=== PATIENT | male | born 1955 | race Caucasian/White ===

== ENCOUNTER → 2016-08-06 | Outpatient (CLI) | payer OTHER ==
--- NOTE | 2016-08-07 09:52 | CR ---
EXAM DATE: 08/06/16 PATIENT'S AGE: 60 Patient: RACHELLE DOLL Facility: [place], [place] Site Site : 1955 Study: XRay Knee Left [id number]/24/2017 11:23:14 AM Ordering Physician: LYNN MENDEZ Final Report: History : Osteoarthritis of knee. Findings: Standing AP and lateral radiographs of the left knee were obtained with a sunrise view. There is mild decrease in the medial joint space. No spurring is identified. The patellofemoral joint space appears preserved. No joint effusion , fracture or dislocation. Impression: Mild decrease in the medial joint space of the left knee. Dictated by Shannon Villegas MD @ Aug 06 2016 11:47PM (Electronic Signature) Report Signed by Proxy and Original Signed Document filed in the Medical Record. GLENDA
== END ==
LOC: MW.CHFP 09:41
PROVIDERS: ATTEND Physician Assistant
DX: M17.12 Unilateral primary osteoarthritis, left knee (principal)
CPT/HCPCS: 73562-26-LT; 73562-LT

== ENCOUNTER 2017-04-29 12:16 | Emergency (ER) | payer OTHER ==
--- NOTE | 2017-04-29 12:38 | EDM.PDOC ---
ED HPI GENERAL MEDICAL PROBLEM - General Chief Complaint: Genitourinary Problem Stated Complaint: UNABLE TO URINATE Time Seen by Provider: 04/29/17 12:38 Source of Information: Reports: Patient - History of Present Illness INITIAL COMMENTS - FREE TEXT/NARRATIVE: HISTORY AND PHYSICAL: History of present illness: [Patient presents with lateral pain urinary hesitancy and frequency much dysuria on urination no fever nausea vomiting chills sweats No flank pain pain is minimal to tolerable until urination ] Review of systems: As per history of present illness and below otherwise all systems reviewed and negative. Past medical history: As per history of present illness and as reviewed below otherwise noncontributory. Surgical history: As per history of present illness and as reviewed below otherwise noncontributory. Social history: No reported history of drug or alcohol abuse. Family history: As per history of present illness and as reviewed below otherwise noncontributory. Physical exam: HEENT: Atraumatic, normocephalic, pupils reactive, negative for conjunctival pallor or scleral icterus, mucous membranes moist, throat clear, neck supple, nontender, trachea midline. Lungs: Clear to auscultation, breath sounds equal bilaterally, chest nontender. Heart: S1S2, regular, negative for clicks, rubs, or JVD. Abdomen: Soft, nondistended, nontender. Negative for masses or hepatosplenomegaly. Negative for costovertebral tenderness. Pelvis: Stable nontender. Genitourinary: Deferred. Rectal: Deferred. Extremities: Atraumatic, negative for cords or calf pain. Neurovascular unremarkable. Neuro: Awake, alert, oriented. Cranial nerves II through XII unremarkable. Cerebellum unremarkable. Motor and sensory unremarkable throughout. Exam nonfocal. Diagnostics: []CBC CMP UA with culture Bladder scan Therapeutics: 250 mg Rocephin IM Azithromycin 1 g by mouth Bactrim double strength by mouth twice a day #20 no refill ] Impression: UTI Definitive disposition and diagnosis as appropriate pending reevaluation and review of above. Back Pain Score (Numeric/FACES): 5 - Related Data Allergies Allergy/AdvReac Type Severity Reaction Status Date / Time No Known Allergies Allergy Verified 06/03/14 11:08 Home Meds: Home Meds Albuterol [Proair HFA] 1 inhaler INH ASDIRECTED 11/23/13 [History] Fluticasone Propionate [Flovent] 1 inhalation INH ASDIRECTED 11/23/13 [History] Hydrocodone/Acetaminophen [Lorcet 5-325 mg Tablet] 2 tab PO ASDIRECTED PRN 04/29 [History] Tamsulosin [Tamsulosin 24 Hr] 0.4 mg PO BID 04/29/17 [History] Social & Family History - Tobacco Use Smoking Status *Q: Never Smoker Second Hand Smoke Exposure: No - Alcohol Use Days Per Week of Alcohol Use: 0 - Recreational Drug Use Recreational Drug Use: No ED ROS GENERAL - Review of Systems Review Of Systems: ROS reveals no pertinent complaints other than HPI. ED EXAM, GENERAL - Physical Exam Exam: See Below Course - Vital Signs Last Recorded V/S: Last Vital Signs Temp 99.9 F 04/29/17 12:39 Pulse 84 04/29/17 12:39 Resp 18 04/29/17 12:39 BP 133/89 04/29/17 12:39 Pulse Ox - Orders/Labs/Meds Orders: Active Orders 24 hr Category Date Time Status Ricardo Catheter Insertion [Insert Urinary Catheter] [OM. Care 04/29/17 12:45 Ordered PC] Q24H Urinary Catheter Assessment [RC] ASDIRECTED Care 04/29/17 12:37 Active CBC WITH AUTO DIFF [HEME] Stat Lab 04/29/17 12:36 Ordered CHLAMYDIA AND GONORRHEA BY TMA Stat Lab 04/29/17 14:08 Ordered COMPREHENSIVE METABOLIC PN,CMP [CHEM] Stat Lab 04/29/17 12:36 Ordered CULTURE URINE [RM] Stat Lab 04/29/17 12:45 Received Azithromycin [Zithromax] Med 04/29/17 14:09 Stat 1,000 mg PO NOW STA cefTRIAXone [Rocephin] 250 mg Med 04/29/17 14:09 Active Lidocaine 1% [Xylocaine-MPF 1%] 1 ml IM ONETIME Labs: Laboratory Tests 04/29/17 Range/Units 12:45 Urine Color YELLOW Urine Appearance CLEAR Urine pH 7.0 (5.0-8.0) Ur Specific [place] 1.015 (1.001-1.035) Urine Protein NEGATIVE (NEGATIVE) mg/dL Urine Glucose (UA) NEGATIVE (NEGATIVE) mg/dL Urine Ketones NEGATIVE (NEGATIVE) mg/dL Urine Occult Blood NEGATIVE (NEGATIVE) Urine Nitrite NEGATIVE (NEGATIVE) Urine Bilirubin NEGATIVE (NEGATIVE) Urine Urobilinogen 0.2 (<2.0) EU/dL Ur Leukocyte Esterase MODERATE (NEGATIVE) Urine RBC 0-1 (0-2/HPF) Urine WBC 20-25 (0-5/HPF) Ur Epithelial Cells RARE (NONE-FEW) Urine Bacteria FEW (NEGATIVE) Meds: Medications Discontinued Medications Generic Name Dose Route Start Last Admin Trade Name Kenan PRN Reason Stop Dose Admin Azithromycin 1,000 mg 04/29/17 14:09 Zithromax PO 04/29/17 14:10 NOW STA Ceftriaxone Sodium 250 mg/ 1 mls @ 1 mls/sec 04/29/17 14:09 Lidocaine HCl IM 04/29/17 14:10 ONETIME ONE Departure - Departure Time of Disposition: 14:11 Disposition: Home, Self-Care 01 Condition: Good Clinical Impression: Urinary tract infection - Discharge Information Referrals: Sy Williamson MD [Primary Care Provider] - Forms: ED Department Discharge Additional Instructions: The following information is given to patients seen in the emergency department who are being discharged to home. This information is to outline your options for follow-up care. We provide all patients seen in our emergency department with a follow-up referral. The need for follow-up, as well as the timing and circumstances, are variable depending upon the specifics of your emergency department visit. If you don't have a primary care physician on staff, we will provide you with a referral. We always advise you to contact your personal physician following an emergency department visit to inform them of the circumstance of the visit and for follow-up with them and/or the need for any referrals to a consulting specialist. The emergency department will also refer you to a specialist when appropriate. This referral assures that you have the opportunity for follow-up care with a specialist. All of these measure are taken in an effort to provide you with optimal care, which includes your follow-up. Under all circumstances we always encourage you to contact your private physician who remains a resource for coordinating your care. When calling for follow-up care, please make the office aware that this follow-up is from your recent emergency room visit. If for any reason you are refused follow-up, please contact the [facility] emergency department at and asked to speak to the emergency department charge nurse. - My Orders Last 24 Hours: My Active Orders 04/29/17 12:36 CBC WITH AUTO DIFF [HEME] Stat COMPREHENSIVE METABOLIC PN,CMP [CHEM] Stat 04/29/17 12:37 Urinary Catheter Assessment [RC] ASDIRECTED 04/29/17 12:45 Ricardo Catheter Insertion [Insert Urinary Catheter] [OM.PC] Q24H CULTURE URINE [RM] Stat 04/29/17 14:08 CHLAMYDIA AND GONORRHEA BY TMA Stat 04/29/17 14:09 Azithromycin [Zithromax] 1,000 mg PO NOW STA cefTRIAXone [Rocephin] 250 mg Lidocaine 1% [Xylocaine-MPF 1%] 1 ml IM ONETIME - Assessment/Plan Last 24 Hours: My Active Orders 04/29/17 12:36 CBC WITH AUTO DIFF [HEME] Stat COMPREHENSIVE METABOLIC PN,CMP [CHEM] Stat 04/29/17 12:37 Urinary Catheter Assessment [RC] ASDIRECTED 04/29/17 12:45 Ricardo Catheter Insertion [Insert Urinary Catheter] [OM.PC] Q24H CULTURE URINE [RM] Stat 04/29/17 14:08 CHLAMYDIA AND GONORRHEA BY TMA Stat 04/29/17 14:09 Azithromycin [Zithromax] 1,000 mg PO NOW STA cefTRIAXone [Rocephin] 250 mg Lidocaine 1% [Xylocaine-MPF 1%] 1 ml IM ONETIME
[2017-04-29] MEDS ORDERED: cefTRIAXone 250 MG in Lidocaine 1% 1 ML IM ONE (14:09)
[2017-04-29] MEDS ORDERED: Azithromycin 250 MG Tab PO STA (14:09)
[2017-04-29] MEDS ORDERED: Ketorolac 60 MG/2 ML SDV IM ONE (14:13)
[2017-04-29 14:49] LABS: CHLORIDE,CL 107 mmol/L (98-110); SODIUM,NA 140 mmol/L (136-146)
[2017-04-29 15:21] VITALS: BP 121/82
== END 2017-04-29 15:19 | disposition home or self-care (01) ==
LOC: MW.ED 12:16
DX: N39.0 Urinary tract infection, site not specified (principal)
CPT/HCPCS: 36415; 51702; 80053; 81001; 85025; 87086; 87088; 87186; 87491; 87591; 96372; 99284; A9270; J0696; J1885; 99283

== ENCOUNTER 2017-07-30 14:37 | Emergency (ER) | payer OTHER ==
[2017-07-30] MEDS ORDERED: Sodium Chloride 0.9% 1,000 ML IV ONE (14:50)
[2017-07-30] MEDS ORDERED: Ketorolac 30 MG/ML SDV IVPUSH ONE (14:50)
--- NOTE | 2017-07-30 14:51 | EDM.PDOC ---
ED HPI GENERAL MEDICAL PROBLEM - General Stated Complaint: GROIN PAIN Time Seen by Provider: 07/30/17 14:50 Source of Information: Reports: Patient - History of Present Illness INITIAL COMMENTS - FREE TEXT/NARRATIVE: HISTORY AND PHYSICAL: History of present illness: [Patient presents with left flank pain present for a couple of days none history of a renal stone that is quite large no fever nausea vomiting chills sweats no bowel or urine symptoms ] Review of systems: As per history of present illness and below otherwise all systems reviewed and negative. Past medical history: As per history of present illness and as reviewed below otherwise noncontributory. Surgical history: As per history of present illness and as reviewed below otherwise noncontributory. Social history: No reported history of drug or alcohol abuse. Family history: As per history of present illness and as reviewed below otherwise noncontributory. Physical exam: HEENT: Atraumatic, normocephalic, pupils reactive, negative for conjunctival pallor or scleral icterus, mucous membranes moist, throat clear, neck supple, nontender, trachea midline. Lungs: Clear to auscultation, breath sounds equal bilaterally, chest nontender. Heart: S1S2, regular, negative for clicks, rubs, or JVD. Abdomen: Soft, nondistended, nontender. Negative for masses or hepatosplenomegaly. Negative for costovertebral tenderness. Pelvis: Stable nontender. Genitourinary: Deferred. Rectal: Deferred. Extremities: Atraumatic, negative for cords or calf pain. Neurovascular unremarkable. Neuro: Awake, alert, oriented. Cranial nerves II through XII unremarkable. Cerebellum unremarkable. Motor and sensory unremarkable throughout. Exam nonfocal. Diagnostics: [CBC CMP UA with culture ] Therapeutics: [Liter normal saline bolus Zofran 8 mg IV Toradol 30 mg IV ] Impression: 8 x 10 mm left ureteral stone I spoke with Dr. Mayfield he'll see the patient at 9 AM pain is currently controlled Definitive disposition and diagnosis as appropriate pending reevaluation and review of above. Left Lower Groin Pain Score (Numeric/FACES): 7 - Related Data Allergies Allergy/AdvReac Type Severity Reaction Status Date / Time No Known Allergies Allergy Verified 06/03/14 11:08 Home Meds: Home Meds Albuterol [Proair HFA] 1 inhaler INH ASDIRECTED 11/23/13 [History] Fluticasone Propionate [Flovent] 1 inhalation INH ASDIRECTED 11/23/13 [History] Tamsulosin [Tamsulosin 24 Hr] 0.4 mg PO BID 04/29/17 [History] Hydrocodone/Acetaminophen [Hydrocodon-Acetaminoph 7.5-325] 1 each PO Q8H PRN [History] Past Medical History - Past Health History Medical/Surgical History: Denies Medical/Surgical History Genitourinary History: Reports: Renal Calculus - Infectious Disease History Infectious Disease History: Reports: Chicken Pox, Measles, Mumps Social & Family History - Family History Family Medical History: Noncontributory - Tobacco Use Smoking Status *Q: Never Smoker Second Hand Smoke Exposure: No - Caffeine Use Caffeine Use: Reports: Coffee - Alcohol Use Days Per Week of Alcohol Use: 0 - Recreational Drug Use Recreational Drug Use: No ED ROS GENERAL - Review of Systems Review Of Systems: ROS reveals no pertinent complaints other than HPI. ED EXAM, GENERAL - Physical Exam Exam: See Below Course - Vital Signs Last Recorded V/S: Last Vital Signs Temp 98.1 F 07/30/17 14:56 Pulse 70 07/30/17 16:18 Resp 14 07/30/17 16:18 BP 128/91 H 07/30/17 16:18 Pulse Ox 95 07/30/17 16:18 - Orders/Labs/Meds Orders: Active Orders 24 hr Category Date Time Status Abdomen Pelvis w wo Cont [CT] Stat Exams 07/30/17 15:15 Taken CULTURE URINE [RM] Stat Lab 07/30/17 15:12 Received Labs: Laboratory Tests 07/30/17 07/30/17 07/30/17 Range/Units 14:58 14:58 15:12 WBC 6.92 (4.0-11.0) K/uL RBC 5.31 (4.50-5.90) M/uL Hgb 16.5 (13.0-17.0) g/dL Hct 47.5 (38.0-50.0) % MCV 89.5 (80.0-98.0) fL MCH 31.1 (27.0-32.0) pg MCHC 34.7 (31.0-37.0) g/dL RDW Std Deviation 42.0 (28.0-62.0) fl RDW Coeff of Chiquita 13 (11.0-15.0) % Plt Count 160 (150-400) K/uL MPV 10.70 (7.40-12.00) fL Neut % (Auto) 64.5 (48.0-80.0) % Lymph % (Auto) 27.0 (16.0-40.0) % [place] % (Auto) 7.2 (0.0-15.0) % Eos % (Auto) 1.0 (0.0-7.0) % Baso % (Auto) 0.3 (0.0-1.5) % Neut # (Auto) 4.5 (1.4-5.7) K/uL Lymph # (Auto) 1.9 (0.6-2.4) K/uL [place] # (Auto) 0.5 (0.0-0.8) K/uL Eos # (Auto) 0.1 (0.0-0.7) K/uL Baso # (Auto) 0.0 (0.0-0.1) K/uL Nucleated RBC % 0.0 /100WBC Nucleated RBCs # 0 K/uL Sodium 140 (136-148) mmol/L Potassium 4.6 (3.5-5.1) mmol/L Chloride 106 (98-107) mmol/L Carbon Dioxide 26.2 (21.0-32.0) mmol/L BUN 13 (7.0-18.0) mg/dL Creatinine 1.0 (0.8-1.3) mg/dL Est Cr Clr Drug Dosing 90.19 mL/min Estimated GFR (MDRD) > 60.0 ml/min Glucose 131 H (74-106) mg/dL Calcium 9.9 (8.5-10.1) mg/dL Total Bilirubin 0.5 (0.2-1.0) mg/dL AST 17 (15-37) IU/L ALT 26 (14-63) IU/L Alkaline Phosphatase 55 (46-116) U/L Total Protein 7.9 (6.4-8.2) g/dL Albumin 4.4 (3.4-5.0) g/dL Globulin 3.5 (2.0-3.5) g/dL Albumin/Globulin Ratio 1.3 (1.3-2.8) Urine Color YELLOW Urine Appearance CLEAR Urine pH 6.0 (5.0-8.0) Ur Specific [place] 1.015 (1.001-1.035) Urine Protein NEGATIVE (NEGATIVE) mg/dL Urine Glucose (UA) NEGATIVE (NEGATIVE) mg/dL Urine Ketones NEGATIVE (NEGATIVE) mg/dL Urine Occult Blood LARGE H (NEGATIVE) Urine Nitrite NEGATIVE (NEGATIVE) Urine Bilirubin NEGATIVE (NEGATIVE) Urine Urobilinogen 0.2 (<2.0) EU/dL Ur Leukocyte Esterase NEGATIVE (NEGATIVE) Urine RBC 25-30 (0-2/HPF) Urine WBC 0-2 (0-5/HPF) Ur Epithelial Cells RARE (NONE-FEW) Urine Bacteria RARE (NEGATIVE) Meds: Medications Discontinued Medications Generic Name Dose Route Start Last Admin Trade Name Kenan PRN Reason Stop Dose Admin Sodium Chloride 1,000 mls @ 999 mls/hr 07/30/17 14:50 07/30/17 15:20 Normal Saline IV 07/30/17 15:50 999 mls/hr STAT ONE Administration Ketorolac Tromethamine 30 mg 07/30/17 14:50 07/30/17 15:20 Toradol IVPUSH 07/30/17 14:51 30 mg ONETIME ONE Administration Departure - Departure Time of Disposition: 18:15 Disposition: Home, Self-Care 01 Condition: Good Clinical Impression: Ureteral stone - Discharge Information Additional Instructions: The following information is given to patients seen in the emergency department who are being discharged to home. This information is to outline your options for follow-up care. We provide all patients seen in our emergency department with a follow-up referral. The need for follow-up, as well as the timing and circumstances, are variable depending upon the specifics of your emergency department visit. If you don't have a primary care physician on staff, we will provide you with a referral. We always advise you to contact your personal physician following an emergency department visit to inform them of the circumstance of the visit and for follow-up with them and/or the need for any referrals to a consulting specialist. The emergency department will also refer you to a specialist when appropriate. This referral assures that you have the opportunity for follow-up care with a specialist. All of these measure are taken in an effort to provide you with optimal care, which includes your follow-up. Under all circumstances we always encourage you to contact your private physician who remains a resource for coordinating your care. When calling for follow-up care, please make the office aware that this follow-up is from your recent emergency room visit. If for any reason you are refused follow-up, please contact the [facility] emergency department at and asked to speak to the emergency department charge nurse. - My Orders Last 24 Hours: My Active Orders 07/30/17 15:12 CULTURE URINE [RM] Stat 07/30/17 15:15 Abdomen Pelvis w wo Cont [CT] Stat - Assessment/Plan Last 24 Hours: My Active Orders 07/30/17 15:12 CULTURE URINE [RM] Stat 07/30/17 15:15 Abdomen Pelvis w wo Cont [CT] Stat
[2017-07-30 15:25] LABS: CHLORIDE,CL 106 mmol/L (98-107); SODIUM,NA 140 mmol/L (136-148)
[2017-07-30 18:14] VITALS: BP 124/86
--- NOTE | 2017-07-31 09:30 | CT ---
EXAM DATE: 07/30/17 PATIENT'S AGE: 61 Patient: RACHELLE DOLL Facility: [place], [place] Site . Site : 1955 Study: CT Abdomen/Pelvis [id number]/17/2018 5:02:18 PM Ordering Physician: Mine Flood Final Report: HISTORY: Left flank pain. TECHNIQUE: The abdomen and pelvis were scanned using helical technique at 3 mm intervals before and after IV contrast. Sagittal and coronal reconstructions were performed. COMPARISON: 01 May 2017. No infiltrate. FINDINGS: Liver and gallbladder: The liver parenchyma is homogeneous. No calcified gallstones. Spleen, pancreas and adrenal glands: Unremarkable. Retroperitoneum and lymph nodes: The abdominal aorta is normal caliber. There are some small iliac lymph nodes without change. No pathologic periaortic lymphadenopathy. Kidneys and bladder: 2 cm cyst seen in the mid pole right kidney without change. A small exophytic 1 cm cyst is seen off the lower pole. There is a tiny nonobstructing stone seen in the mid pole of the right kidney. Symmetric nephrograms. There is moderate left-sided hydronephrosis. An 8 x 8 x 10 mm stone is seen in the proximal left ureter at the ureteral pelvic junction on axial image 75 series 2. It measures 1,311 Hounsfield units. The left ureter distal to ureteral stone is tiny in caliber. Bladder is within normal limits. GI tract: Stomach is decompressed. No dilated small bowel loops are seen. The appendix is normal. Stool and gas are seen throughout the colon. There are a few sigmoid diverticula without surrounding inflammatory change. No free air in the abdomen. There is no free fluid the pelvis. Pelvic organ: Prostate is massive. Abdominal wall: Small fat containing umbilical hernia without inflammatory change. Osseous structures: Degenerative changes within the discs of the spine. There is minimal anterior wedging of T9. This is unchanged from prior exam. IMPRESSION: 1. There is a 8 x 8 x 10 mm stone seen in the proximal left ureter at the ureteropelvic junction with moderate left-sided hydronephrosis. 2. Tiny nonobstructing stone right kidney. 3. 2 cm and 1 cm right renal cysts. 4. Prostatic hypertrophy. 5. Sigmoid diverticulosis. Dictated by Shannon Villegas MD @ 07/30/2017 5:49:42 PM Please note that all CT scans at this facility use dose modulation, iterative reconstruction, and/or weight-based dosing when appropriate to reduce radiation dose to as low as reasonably achievable. Dictated by: Shannon Villegas MD @ 07/30/2017 17:50:32 (Electronic Signature) Report Signed by Proxy. MTDD
== END 2017-07-30 18:26 | disposition home or self-care (01) ==
LOC: MW.ED 14:37
DX: N13.2 Hydronephrosis with renal and ureteral calculous obstruction (principal)
CPT/HCPCS: 36415; 74178; 80053; 81001; 85025; 87086; 87088; 87186; 96361; 96374; 99284; J1885; J7040; 99283

== ENCOUNTER 2017-08-01 07:51 | Day surgery (SDC) | payer OTHER ==
[~2017-08-01 07:51] MED LIST: Glycopyrrolate 0.2 MG/ML SDV ONE; Ketorolac 30 MG/ML SDV ONE; Lactated Ringers 1,000 ML IV SCH; Lidocaine 2% 5 ML SDV ONE; Midazolam 1 MG/ML 2 ML SDV ONE; Neostigmine Methylsulfate 1 MG/ML 5 ML Syringe ONE; Ondansetron 4 MG/2 ML SDV ONE; Propofol 200 MG/20 ML SDV ONE; Rocuronium 10 MG/ML 10 ML Syringe ONE; Sodium Chloride 0.9% 2.5 ML Syringe FLUSH PRN; ceFAZolin 2 GM in Premix Bag 1 BAG IV ONE; fentaNYL 100 MCG/2 ML SDV ONE
[2017-08-01] MEDS ORDERED: fentaNYL 250 MCG/5 ML SDV IVPUSH ONE (09:01)
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
[2017-08-01] MEDS ORDERED: fentaNYL 100 MCG/2 ML SDV IVPUSH ONE (09:15)
[2017-08-01] MEDS ORDERED: Phenylephrine/Normal Saline 100 MCG/ML 10 ML Syringe ONE (10:01)
[2017-08-01] MEDS ORDERED: Glycopyrrolate 0.2 MG/ML SDV ONE (10:07)
[2017-08-01] MEDS ORDERED: Iopamidol 408 MG/ML 50 ML SDV ONE (10:22)
--- NOTE | 2017-08-01 11:35 | PCM.POSTAN ---
POST ANESTHESIA ASSESSMENT - MENTAL STATUS Mental Status: Alert, Oriented - RESPIRATORY Respiratory Status: Respiratory Rate WNL, Airway Patent, O2 Saturation Stable - CARDIOVASCULAR CV Status: Pulse Rate WNL, Blood Pressure Stable - GASTROINTESTINAL GI Status: No Symptoms - POST OP HYDRATION Hydration Status: Adequate & Stable
[2017-08-01 12:08] VITALS: BP 114/72
--- NOTE | 2017-08-01 12:23 | PCM48HPAN ---
Post Anesthesia Note - EVALUATION WITHIN 48HRS OF ANESTHETIC Vital Signs in Normal Range: Yes Patient Participated in Evaluation: Yes Respiratory Function Stable: Yes Airway Patent: Yes Cardiovascular Function Stable: Yes Hydration Status Stable: Yes Pain Control Satisfactory: Yes Nausea and Vomiting Control Satisfactory: Yes Mental Status Recovered: Yes Resp Rate: 14
--- NOTE | 2017-08-01 13:33 | OR ---
SURGEON: Thais Rodgers M.D. DATE OF PROCEDURE: 08/01/2017 PREOPERATIVE DIAGNOSIS: Left upper ureteral stone, 8 mm. POSTOPERATIVE DIAGNOSIS: Left upper ureteral stone, 8 mm. PROCEDURE PERFORMED: ESWL plus cystoscopy AND double-J stent placement. DESCRIPTION OF PROCEDURE: The patient was given general anesthesia on the lithotripsy table and was positioned so the stone could be treated and eventually received 2500 shocks. The shape or the density of the stone did not seem to change, so I decided to put a double-J stent in. He was then placed in dorsal lithotomy position, prepped and draped in sterile drapes. Cystourethroscopy was done and showed an enlarged obstructive prostate. A Glidewire was advanced in the left ureter alongside of the stone all the way up into the renal pelvis over which a 6- Indonesian 26 centimeter double-J stent was placed. In the process, the stone was pushed back up into upper pole calyx and was appeared to have been broken into primarily 2 fragments. With that done, the bladder was emptied, and the patient was moved to recovery room in good condition. PLAN: I will see him in 2 weeks and arrange for laser lithotripsy. ANALY / ANGELA /[id number]
== END 2017-08-01 12:16 | disposition home or self-care (01) ==
LOC: MW.SDS 07:51
PROVIDERS: ATTEND Urology
DX: N20.1 Calculus of ureter (principal); N40.0 Benign prostatic hyperplasia without lower urinary tract symptoms; M19.90 Unspecified osteoarthritis, unspecified site; J62.8 Pneumoconiosis due to other dust containing silica; Z88.1 Allergy status to other antibiotic agents; Z87.442 Personal history of urinary calculi; Z79.899 Other long term (current) drug therapy; Z87.891 Personal history of nicotine dependence
CPT/HCPCS: 50590; 52332; J1885; J2250; J2405; J3010; J7120; J2704; Q9966

== ENCOUNTER 2017-08-29 08:05 | Day surgery (SDC) | payer OTHER ==
[~2017-08-29 08:05] MED LIST changes: +Dexamethasone 4 MG/ML 5 ML MDV ONE; -Glycopyrrolate 0.2 MG/ML SDV ONE; -Ketorolac 30 MG/ML SDV ONE; -Lidocaine 2% 5 ML SDV ONE; -Neostigmine Methylsulfate 1 MG/ML 5 ML Syringe ONE; -Rocuronium 10 MG/ML 10 ML Syringe ONE; +Sodium Chloride 0.9% 10 ML Syringe FLUSH PRN; +ceFAZolin/Dextrose,Iso-Osmotic 2 GM/50 ML Duplex Bag IV ONE
[2017-08-29] MEDS ORDERED: Succinylcholine 200 MG/10 ML MDV ONE (09:41)
[2017-08-29] MEDS ORDERED: Rocuronium 10 MG/ML 10 ML Syringe ONE (09:41)
--- NOTE | 2017-08-29 09:41 | PCM.PREANE ---
Preanesthetic Assessment - Procedure Proposed Procedure: Ureteral stone laser / extraction - Anesthesia/Transfusion/Family Hx Anesthesia History: Prior Anesthesia Without Reaction Transfusion History: No Prior Transfusion(s) Intubation History: Unknown - Review of Systems General: No Symptoms Pulmonary: Other (uses inhaler) Cardiovascular: No Symptoms Gastrointestinal: No Symptoms Neurological: No Symptoms Other: Reports: Anxiety - Physical Assessment NPO Status Date: 08/28/17 NPO Status Time: 21:00 O2 Sat by Pulse Oximetry: 97 Respiratory Rate: 16 Vital Signs: Last Vital Signs Temp 98.1 F 08/29/17 08:40 Pulse 64 08/29/17 08:40 Resp 16 08/29/17 08:40 BP 135/81 08/29/17 08:40 Pulse Ox 97 08/29/17 08:40 Height: 6 ft Weight: 230 lb ASA Class: 2 Mental Status: Alert & Oriented x3 Airway Class: Mallampati = 2 Dentition: Reports: Normal Dentition, Neche(s) Thyro-Mental Finger Breadths: 3 Mouth Opening Finger Breadths: 3 ROM/Head Extension: Full Lungs: Clear to Auscultation, Normal Respiratory Effort Cardiovascular: Regular Rate, Regular Rhythm, No Murmurs - Allergies Allergies/Adverse Reactions: Allergies Allergy/AdvReac Type Severity Reaction Status Date / Time doxazosin Allergy Other Verified 08/26/17 16:36 - Blood Blood Available: No Product(s) Available: None - Anesthesia Plan Pre-Op Medication Ordered: None - Acknowledgements Anesthesia Type Planned: General Anesthesia (OET) Pt an Appropriate Candidate for the Planned Anesthesia: Yes Alternatives and Risks of Anesthesia Discussed w Pt/Guardian: Yes Pt/Guardian Understands and Agrees with Anesthesia Plan: Yes PreAnesthesia Questionnaire - Past Health History Medical/Surgical History: Denies Medical/Surgical History HEENT History: Reports: Hard of Hearing, Other (See Below) Other HEENT History: wears glasses Respiratory History: Reports: Other (See Below) Other Respiratory History: "mild" sarcoidosis of lungs Genitourinary History: Reports: BPH, Renal Calculus Musculoskeletal History: Reports: Back Pain, Chronic, Fracture, Neck Pain, Chronic Other Musculoskeletal History: hx of fx left ankle, right wrist, ribs, back clavicle Endocrine/Metabolic History: Reports: Other (See Below) Other Endocrine/Metabolic History: hypoglycemia - Infectious Disease History Infectious Disease History: Reports: Chicken Pox, Measles, Mumps - Past Surgical History Male Surgical History: Reports: Lithotripsy (ESWL) - SUBSTANCE USE Smoking Status *Q: Former Smoker Tobacco Use Within Last Twelve Months: No Second Hand Smoke Exposure: No Days Per Week of Alcohol Use: 1 Number of Drinks Per Day: 1 Total Drinks Per Week: 1 Recreational Drug Use History: No - HOME MEDS Home Medications: Home Meds Albuterol [Proair HFA] 1 inhaler INH ASDIRECTED PRN 11/23/13 [History] Fluticasone Propionate [Flovent] 1 inhalation INH BID 11/23/13 [History] Tamsulosin [Tamsulosin 24 Hr] 2 cap PO DAILY 04/29/17 [History] Hydrocodone/Acetaminophen [Hydrocodon-Acetaminoph 7.5-325] 1 each PO Q8H PRN [History] oxyCODONE ER [OxyCONTIN] 10 mg PO ASDIRECTED PRN 08/26/17 [History] - CURRENT (IN HOUSE) MEDS Current Meds: Current Medications Lactated Ringer's (Ringers, Lactated) 1,000 mls @ 100 mls/hr IV ASDIRECTED JACQUELINE Last Admin: 08/29/17 09:03 Dose: 100 mls/hr Sodium Chloride (Saline Flush) 10 ml FLUSH ASDIRECTED PRN PRN Reason: Keep Vein Open Sodium Chloride (Saline Flush) 2.5 ml FLUSH ASDIRECTED PRN PRN Reason: Keep Vein Open Discontinued Medications Cefazolin Sodium/Dextrose (Ancef) Confirm Administered Dose 2 gm IV .STK-MED ONE Stop: 08/29/17 07:42 Dexamethasone (Dexamethasone) Confirm Administered Dose 20 mg .ROUTE .STK-MED ONE Stop: 08/29/17 07:44 Fentanyl (Sublimaze) Confirm Administered Dose 100 mcg .ROUTE .STK-MED ONE Stop: 08/29/17 07:43 Cefazolin Sodium/Dextrose 2 gm (/ Premix) 50 mls @ 100 mls/hr IV ONCALL ONE Stop: 08/29/17 00:30 Midazolam HCl (Versed 1 Mg/Ml) Confirm Administered Dose 2 mg .ROUTE .STK-MED ONE Stop: 08/29/17 07:43 Ondansetron HCl (Zofran) Confirm Administered Dose 4 mg .ROUTE .STK-MED ONE Stop: 08/29/17 07:44 Propofol (Diprivan 20 Ml) Confirm Administered Dose 200 mg .ROUTE .STK-MED ONE Stop: 08/29/17 07:43
[2017-08-29] MEDS ORDERED: Iopamidol 408 MG/ML 50 ML SDV ONE (09:59)
[2017-08-29] MEDS ORDERED: ePHEDrine 50 MG/ML SDV ONE (10:09)
[2017-08-29] MEDS ORDERED: Sodium Chloride 0.9% 20 ML ONE (10:10)
[2017-08-29] MEDS ORDERED: Phenylephrine/Normal Saline 100 MCG/ML 10 ML Syringe ONE (10:14)
[2017-08-29] MEDS ORDERED: Neostigmine Methylsulfate 1 MG/ML 5 ML Syringe ONE (10:26)
[2017-08-29] MEDS ORDERED: Glycopyrrolate 0.2 MG/ML SDV ONE (10:26)
[2017-08-29] MEDS ORDERED: fentaNYL 100 MCG/2 ML SDV IVPUSH PRN (10:30)
[2017-08-29] MEDS ORDERED: fentaNYL 100 MCG/2 ML SDV ONE (10:56)
[2017-08-29] MEDS ORDERED: Propofol 200 MG/20 ML SDV ONE (11:46)
--- NOTE | 2017-08-29 12:54 | OR ---
SURGEON: Thais Rodgers M.D. DATE OF PROCEDURE: 08/29/2017 PREOPERATIVE DIAGNOSIS: Left renal pelvis stone. POSTOPERATIVE DIAGNOSIS: Left renal pelvis stone. OPERATIONS: Ureteroscopy, renoscopy, laser lithotripsy, and removal of stones plus double-J stent placement. DESCRIPTION OF PROCEDURE: The patient was given general anesthesia, was placed in dorsal lithotomy position, prepped and draped in sterile drapes. Cystourethroscopy was done. The existing double-J stent was removed. A guidewire and Glidewire were both advanced in the left ureter all the way up into the renal pelvis. The flexible ureteroscope was advanced over the Glidewire and the stones that are present in the renal pelvis were broken up into multiple smaller pieces. The largest pieces were removed using a combination of zero tip stone basket and rigid ureteroscope with the grasper. At the end, a 6-British 26 centimeter double-J stent was placed. The position of which was confirmed on fluoroscopy. The bladder was emptied. The string at the end of the stents taped to the outside of the penis, and the patient was moved to recovery room in good condition. PLAN: I will see him again in 10 days to remove the double-J stent. ANALY / ANGELA /[id number]
[2017-08-29 13:48] VITALS: BP 110/75
--- NOTE | 2017-08-29 15:43 | CR ---
EXAMINATION: Abdomen HISTORY: lithotripsy COMPARISON: 07/30/2017 TECHNIQUE: 8 fluoroscopic images project over the left renal collecting system. FINDINGS/IMPRESSION: Operative control films were obtained during lithotripsy with subsequent placeme nt of a left renal stent. Previously demonstrated stones are no longer visualized.
== END 2017-08-29 14:30 | disposition home or self-care (01) ==
LOC: MW.SDS 08:05
PROVIDERS: ATTEND Urology
DX: N20.0 Calculus of kidney (principal); N40.0 Benign prostatic hyperplasia without lower urinary tract symptoms; M19.90 Unspecified osteoarthritis, unspecified site; J62.8 Pneumoconiosis due to other dust containing silica; Z88.8 Allergy status to other drugs, medicaments and biological substances; Z79.899 Other long term (current) drug therapy; Z87.442 Personal history of urinary calculi; Z79.82 Long term (current) use of aspirin; Z87.891 Personal history of nicotine dependence
CPT/HCPCS: 76001; 76001-26; J0330; J0690; J1100; J2250; J2405; J2704; J3010; J7120; Q9966

== ENCOUNTER 2018-11-10 17:22 | Emergency (ER) | payer OTHER ==
--- NOTE | 2018-11-10 17:33 | EDM.PDOC ---
ED HPI GENERAL MEDICAL PROBLEM - General Chief Complaint: Upper Extremity Injury/Pain Stated Complaint: POSSIBLE BROKEN ARM Time Seen by Provider: 11/10/18 17:29 - History of Present Illness INITIAL COMMENTS - FREE TEXT/NARRATIVE: HISTORY AND PHYSICAL: History of present illness: Patient's 63-year-old white male presents status post fall which he injured his left wrist he denies any other trauma or concern he has no other complaints Review of systems: As per history of present illness and below otherwise all systems reviewed and negative. Past medical history: As per history of present illness and as reviewed below otherwise noncontributory. Surgical history: As per history of present illness and as reviewed below otherwise noncontributory. Social history: No reported history of drug or alcohol abuse. Family history: As per history of present illness and as reviewed below otherwise noncontributory. Physical exam: HEENT: Atraumatic, normocephalic, pupils reactive, negative for conjunctival pallor or scleral icterus, mucous membranes moist, throat clear, neck supple, nontender, trachea midline. Lungs: Clear to auscultation, breath sounds equal bilaterally, chest nontender. Heart: S1S2, regular, negative for clicks, rubs, or JVD. Abdomen: Soft, nondistended, nontender. Negative for masses or hepatosplenomegaly. Negative for costovertebral tenderness. Pelvis: Stable nontender. Genitourinary: Deferred. Rectal: Deferred. Extremities: Patient has tenderness and swelling over the distal radius of his left wrist no gross deformity there is some localized tenderness neurovascular exam CMS are unremarkable. Neuro: Awake, alert, oriented. Cranial nerves II through XII unremarkable. Cerebellum unremarkable. Motor and sensory unremarkable throughout. Exam nonfocal. Diagnostics: X-ray left wrist Therapeutics: Thumb spica/sling Impression: #1 acute left wrist injury Definitive disposition and diagnosis as appropriate pending reevaluation and review of above. - Related Data Allergies Allergy/AdvReac Type Severity Reaction Status Date / Time doxazosin Allergy Other Verified 11/10/18 17:31 Home Meds: Home Meds Tamsulosin [Tamsulosin 24 Hr] 2 cap PO DAILY 04/29/17 [History] Albuterol Sulfate [Proair Hfa] 1 puff IN DAILY 11/10/18 [History] Fluticasone Propionate [Flovent] 1 puff INH DAILY 11/10/18 [History] Past Medical History - Past Health History Medical/Surgical History: Denies Medical/Surgical History HEENT History: Reports: Hard of Hearing, Other (See Below) Other HEENT History: wears glasses Respiratory History: Reports: Other (See Below) Other Respiratory History: "mild" sarcoidosis of lungs Genitourinary History: Reports: BPH, Renal Calculus Musculoskeletal History: Reports: Back Pain, Chronic, Fracture, Neck Pain, Chronic Other Musculoskeletal History: hx of fx left ankle, right wrist, ribs, back clavicle Endocrine/Metabolic History: Reports: Other (See Below) Other Endocrine/Metabolic History: hypoglycemia - Infectious Disease History Infectious Disease History: Reports: Chicken Pox, Measles, Mumps - Past Surgical History Male Surgical History: Reports: Lithotripsy (ESWL) Social & Family History - Family History Family Medical History: Noncontributory - Caffeine Use Caffeine Use: Reports: Coffee Review of Systems - Review of Systems Review Of Systems: ROS reveals no pertinent complaints other than HPI. ED EXAM, GENERAL - Physical Exam Exam: See Below (See dictation) Course - Vital Signs Last Recorded V/S: Last Vital Signs Temp 36.2 C 11/10/18 17:33 Pulse 103 H 11/10/18 17:33 Resp 18 11/10/18 17:33 BP 132/89 11/10/18 17:33 Pulse Ox 94 L 11/10/18 17:33 - Orders/Labs/Meds Orders: Active Orders 24 hr Category Date Time Status Wrist Comp Min 3V Lt [CR] Stat Exams 11/10/18 17:31 Taken Departure - Departure Time of Disposition: 18:22 Disposition: Home, Self-Care 01 Condition: Good Clinical Impression: Wrist fracture - Discharge Information Referrals: PCP,Unknown [Primary Care Provider] - Forms: ED Department Discharge Additional Instructions: The following information is given to patients seen in the emergency department who are being discharged to home. This information is to outline your options for follow-up care. We provide all patients seen in our emergency department with a follow-up referral. The need for follow-up, as well as the timing and circumstances, are variable depending upon the specifics of your emergency department visit. If you don't have a primary care physician on staff, we will provide you with a referral. We always advise you to contact your personal physician following an emergency department visit to inform them of the circumstance of the visit and for follow-up with them and/or the need for any referrals to a consulting specialist. The emergency department will also refer you to a specialist when appropriate. This referral assures that you have the opportunity for followup care with a specialist. All of these measure are taken in an effort to provide you with optimal care, which includes your followup. Under all circumstances we always encourage you to contact your private physician who remains a resource for coordinating your care. When calling for followup care, please make the office aware that this follow-up is from your recent emergency room visit. If for any reason you are refused follow-up, please contact the [facility] emergency department at and asked to speak to the emergency department charge nurse. [facility] Professional [address], [address] [place] [address] Splint sling as directed hydrocodone as prescribed follow-up orthopedic surgery as discussed return as needed as discussed - My Orders Last 24 Hours: My Active Orders 11/10/18 17:31 Wrist Comp Min 3V Lt [CR] Stat - Assessment/Plan Last 24 Hours: My Active Orders 11/10/18 17:31 Wrist Comp Min 3V Lt [CR] Stat
[2018-11-10 17:35] VITALS: BP 132/89
--- NOTE | 2018-11-10 18:30 | CR ---
INDICATION: Wrist pain status post fall today TECHNIQUE: Wrist radiograph 3 views left COMPARISON: None FINDINGS: Bone: There is a nondisplaced fracture in the distal radial metaphysis. Nondisplaced fracture of the ulnar styloid is noted. Joint: The radiocarpal, carpal, and carpometacarpal joints are unremarkable in appearance. Soft tissue: Unremarkable. No radiopaque foreign bodies are seen. IMPRESSIONS: 1. There is a nondisplaced fracture in the distal radial metaphysis. 2. Nondisplaced fracture of the ulnar styloid is noted. Dictated by Castro Leary MD @ 11/10/2018 6:28:52 PM Dictated by: Castro Leary MD @ 11/10/2018 18:28:58 (Electronically Signed)
[2018-11-10 18:54] VITALS: PULSE 71
== END 2018-11-10 18:54 | disposition home or self-care (01) ==
LOC: MW.ED 17:22
DX: S52.502A Unspecified fracture of the lower end of left radius, initial encounter for closed fracture (principal); S52.602A Unspecified fracture of lower end of left ulna, initial encounter for closed fracture; Z88.8 Allergy status to other drugs, medicaments and biological substances; W19.XXXA Unspecified fall, initial encounter
CPT/HCPCS: 29125; 73110-26-LT; 73110-LT; 99283; 99283-25